=== PATIENT | female | born 1985 | race American Indian/Alaskan Native ===

== ENCOUNTER 2017-10-24 09:01 | Inpatient (IN) | payer MEDICARE, OTHER ==
[2017-10-24] MEDS ORDERED: LASIX IV ONE (12:06)
--- NOTE | 2017-10-24 12:10 | Emergency Department Report ---
Blank Doc - Documentation Documentation: Patient is 32 years old female with extensive past medical history that includes congestive heart failure, CVA, hypertension recent cardiac ablation [address] Ocasio at [facility]. Patient presented to the ER with 3 day history of cough, shortness of breath and chest tightness. Patient denied any fever, nausea or vomiting. On exam patient in no acute distress, diminished breath sounds on both sides, heart exam is normal. Given the patient current medical problems and a recent ablation patient will need further workup. Labs, chest x-ray ordered patient also receive 40 mg iv Lasix.
[2017-10-24 12:40] LABS: Basophils # (Auto) 0.1 K/mm3 (0.0-0.1); Basophils % (Auto) 0.6 % (0.0-1.8); Eosinophils # (Auto) 0.1 K/mm3 (0.0-0.4); Eosinophils % (Auto) 0.6 % (0.0-4.3); Hematocrit 37.5 % (30.3-42.9); Hemoglobin 12.6 gm/dl (10.1-14.3); Lymphocytes # (Auto) 1.5 K/mm3 (1.2-5.4); Lymphocytes % (Auto) 17.6 % (13.4-35.0); Mean Corpuscular HGB Conc 34 % (30-34); Mean Corpuscular Hemoglobin 32 pg (28-32); Mean Corpuscular Volume 95 fl (79-97); Monocytes # (Auto) 0.8 K/mm3 (0.0-0.8); Platelet Count 309 K/mm3 (140-440); Red Blood Count 3.97 M/mm3 (3.65-5.03); Red Cell Distribution Width 14.1 % (13.2-15.2)
[2017-10-24 12:49] LABS: INR 1.42 (0.87-1.13)
[2017-10-24 12:50] LABS: Partial Thromboplastin Time 36.5 Sec. (24.2-36.6)
[2017-10-24 12:57] LABS: Bacteria,Urine 3+ /HPF (Negative); Bilirubin,Urine NEG (Negative); Blood,Urine SM (Negative); Color,Urine Yellow (Yellow); Hyaline Casts,Urine 1 /LPF; Mucus,Urine FEW /HPF; Nitrite,Urine NEG (Negative); Protein,Urine <15 mg/dL mg/dL (Negative); Urobilinogen,Urine < 2.0 mg/dL (<2.0)
[2017-10-24 13:01] LABS: Alanine Aminotransferase 53 units/L (7-56); Albumin 3.9 g/dL (3.9-5); BUN/Creatinine Ratio 9; Blood Urea Nitrogen 12 mg/dL (7-17); Calcium 9.1 mg/dL (8.4-10.2); Hemolysis Index 45
[2017-10-24 13:04] LABS: WBC,Urine < 1.0 /HPF (0.0-6.0)
[2017-10-24] MEDS: LASIX PO ONE ×2 (13:04→13:05)
--- NOTE | 2017-10-24 13:44 | XRay Report ---
Single view chest: History: Dyspnea. Findings: Cardiomegaly is midline. Stable pacemaker. Mild pulmonary venous congestion. Normal CP angles. Impression: Cardiomegaly with mild pulmonary venous congestion.
[2017-10-24] MEDS ORDERED: TESSALON PERLES PO ONE (14:26)
--- NOTE | 2017-10-24 14:30 | Emergency Department Report ---
ED Shortness of Breath HPI - General Chief Complaint: Upper Respiratory Infection Stated Complaint: CP/COUGH Time Seen by Provider: 10/24/17 12:01 Source: patient Mode of arrival: Ambulatory Limitations: No Limitations - History of Present Illness Initial Comments: This is a 32-year-old female nontoxic, well nourished in appearance, no acute signs of distress presents to the ED with c/o of chest pain, shortness of breathe, chest tightness and cough x3 days. Patient stated has had a cardiac ablation last week for CHF. Patient denies any recent travels or long care rides. Patient denies any calf pain or tenderness. Patient denies any hemoptysis, numbness, tingling, fever, chills, bowel pain, back pain, headache or stiff neck. Patient states past medical history includes CHF, CVA, and hypertension. Allergies includes vancomycin. MD Complaint: shortness of breath, cough, chest pain -: days(s) (3) Radiation: left arm Severity: mild Pain Scale: 8 Quality: aching Consistency: constant Improves With: nothing Worsens With: nothing Known History Of: congestive heart failure Associated Symptoms: chest pain, cough, sputum production Treatments Prior to Arrival: none - Related Data Allergies Allergy/AdvReac Type Severity Reaction Status Date / Time vancomycin Allergy Rash Verified 10/24/17 09:13 ED Review of Systems ROS: Stated complaint: CP/COUGH Other details as noted in HPI Constitutional: denies: chills, fever Eyes: denies: eye pain, eye discharge, vision change ENT: denies: ear pain, throat pain Respiratory: cough, shortness of breath, SOB with exertion, wheezing Cardiovascular: chest pain. denies: palpitations Endocrine: no symptoms reported Gastrointestinal: denies: abdominal pain, nausea, diarrhea Genitourinary: denies: urgency, dysuria, discharge Musculoskeletal: denies: back pain, joint swelling, arthralgia Skin: denies: rash, lesions Neurological: denies: headache, weakness, paresthesias Psychiatric: denies: anxiety, depression Hematological/Lymphatic: denies: easy bleeding, easy bruising ED Past Medical Hx - Past Medical History Previous Medical History?: Yes Hx Hypertension: Yes Hx CVA: Yes Hx Congestive Heart Failure: Yes Hx Psychiatric Treatment: Yes (Anxiety, PTSD) - Surgical History Past Surgical History?: Yes Hx Internal Defibrillator: Yes Additional Surgical History: ICD. Cardiac ablation x 2 - Social History Smoking Status: Never Smoker Substance Use Type: None ED Physical Exam - General Limitations: No Limitations General appearance: alert, in no apparent distress - Head Head exam: Present: atraumatic, normocephalic - Eye Eye exam: Present: normal appearance, PERRL, EOMI Pupils: Present: normal accommodation - ENT ENT exam: Present: normal exam, normal orophraynx, mucous membranes moist, TM's normal bilaterally, normal external ear exam - Neck Neck exam: Present: normal inspection, full ROM. Absent: tenderness, meningismus, lymphadenopathy, thyromegaly - Respiratory Respiratory exam: Present: normal lung sounds bilaterally, wheezes (bilateral in all lobes), decreased breath sounds (bilateral lower lobes). Absent: respiratory distress - Cardiovascular Cardiovascular Exam: Present: regular rate, normal rhythm, normal heart sounds. Absent: irregular rhythm, systolic murmur, diastolic murmur, rubs, gallop - GI/Abdominal GI/Abdominal exam: Present: soft, normal bowel sounds. Absent: distended, tenderness, guarding, rebound, rigid, diminished bowel sounds - Rectal Rectal exam: Present: deferred - Extremities Exam Extremities exam: Present: normal inspection, full ROM, normal capillary refill. Absent: tenderness, pedal edema, joint swelling, calf tenderness - Back Exam Back exam: Present: normal inspection, full ROM. Absent: tenderness, CVA tenderness (R), CVA tenderness (L), muscle spasm, paraspinal tenderness, vertebral tenderness, rash noted - Neurological Exam Neurological exam: Present: alert, oriented X3, CN II-XII intact, normal gait, reflexes normal - Psychiatric Psychiatric exam: Present: normal affect, normal mood - Skin Skin exam: Present: warm, dry, intact, normal color. Absent: rash ED Course Vital Signs 10/24/17 10/24/17 09:08 13:23 Temperature 98.2 F 98.6 F Pulse Rate 88 89 Respiratory 18 16 Rate Blood Pressure 109/70 Blood Pressure 91/52 [Left] O2 Sat by Pulse 98 100 Oximetry - Reevaluation(s) Reevaluation #1: 10/24/17 14:32 Patient is speaking in full sentences with slight shortness of breathe with no distress noted. - Consultations Consultation #1: 10/24/17 14:32 Patient has been consulted with Dr. Cain about patient history, physical exam , and labs and examined and screened patient and agrees to ED plan of care and discharge plan of care. Consultation #2: 10/24/17 14:32 Dr. Ward was consulted about patient history, physical exam, labs/imaging and accepts patient to services. Requested to bridge orders to med/surg with tele remote. ED Medical Decision Making - Lab Data Result diagrams: 10/24/17 12:18 10/24/17 12:18 - Medical Decision Making This is a 32-year-old female that presents with CHF exacerbation. Patient is stable and was examined by me and Dr. Cain. Labs obtained and chest xray obtained and dictated by radiologist. Patient was notified of xray results with no questions. EKG obtained and nonstemi, signed by Dr. Cain. Patient was put on cardiac montior and 2L nasal O2. Patient also received 125mg of IV solu- medrol and DuoNeb. Patient was consulted with Dr. Ward and accepted patient to his services for admission. At time of admission, the patient does not seem toxic or ill in appearance. No acute signs of distress noted. Patient agrees to admission treatment plan of care. No further questions noted by the patient. Critical care attestation.: If time is entered above; I have spent that time in minutes in the direct care of this critically ill patient, excluding procedure time. ED Disposition Clinical Impression: CHF exacerbation Qualifiers: Congestive heart failure type: unspecified Qualified Code(s): I50.9 - Heart failure, unspecified Disposition: 09 OP ADMIT IP TO THIS HOSP Is pt being admited?: Yes Does the pt Need Aspirin: No Condition: Stable Referrals: PRIMARY CARE,MD [Primary Care Provider] - 3-5 Days
[2017-10-24] MEDS: DUONEB *Not for PRN Use IH SCH ×3 (14:48→20:27)
[2017-10-24] MEDS ORDERED: MORPHINE IV ONE (17:13)
--- NOTE | 2017-10-24 17:51 | History and Physical Report ---
History of Present Illness Date of examination: 10/24/17 Date of admission: 10/24/17 14:38 Chief complaint: Chief complaint: Increasing shortness of breath for 2 days and chest pain and cough History of present illness: History of Present Illness: 32-year-old -[place] female with history of CHF hypertension anxiety and posttraumatic stress disorder comes in for increasing shortness of breath of 3 days' duration. Also chest tightness and cough for 3 days. Patient had a cardiac ablation for arrhythmias recently. Increasing shortness of breath and orthopnea present. Patient does class IV symptoms of NYHA. No fever no chills. Cough or 2 of mucoid sputum. Some chest pain present. Retrosternal. No diaphoresis no palpitations. Pain is about 6 scale of 1-10. Dull in character. No radiation of chest pain Past Medical History Previous Medical History?: Yes Hx Hypertension: Yes Hx CVA: Yes Hx Congestive Heart Failure: Yes Hx Psychiatric Treatment: Yes (Anxiety, PTSD) - Surgical History Past Surgical History?: Yes Hx Internal Defibrillator: Yes Additional Surgical History: ICD. Cardiac ablation x 2 - Social History Smoking Status: Never Smoker Substance Use Type: None Family history Hypertension Review of Systems ROS: Stated complaint: CP/COUGH Other details as noted in HPI Constitutional: denies: chills, fever Eyes: denies: eye pain, eye discharge, vision change ENT: denies: ear pain, throat pain Respiratory: cough, shortness of breath, SOB with exertion, wheezing Cardiovascular: chest pain. denies: palpitations Endocrine: no symptoms reported Gastrointestinal: denies: abdominal pain, nausea, diarrhea Genitourinary: denies: urgency, dysuria, discharge Musculoskeletal: denies: back pain, joint swelling, arthralgia Skin: denies: rash, lesions Neurological: denies: headache, weakness, paresthesias Psychiatric: denies: anxiety, depression Hematological/Lymphatic: denies: easy bleeding, easy bruising Medications and Allergies Allergies Allergy/AdvReac Type Severity Reaction Status Date / Time vancomycin Allergy Rash Verified 10/24/17 09:13 Home Medications Medication Instructions Recorded Confirmed Last Taken Type ALPRAZolam [Xanax] 2 mg PO BID PRN 10/24/17 10/24/17 Unknown History Amiodarone HCl [Pacerone 400 MG 400 mg PO QDAY 10/24/17 10/24/17 Unknown History TAB] Bisoprolol [Zebeta] 5 mg PO BID 10/24/17 10/24/17 Unknown History Famotidine [Pepcid] 40 mg PO QHS 10/24/17 10/24/17 Unknown History Ferrous Sulfate [Feosol] 325 mg PO QDAY 10/24/17 10/24/17 Unknown History LORazepam [Ativan] 1 mg PO Q12H PRN 10/24/17 10/24/17 Unknown History Pantoprazole [Protonix] 40 mg PO QDAY 10/24/17 10/24/17 Unknown History Potassium Chloride [K-Dur] 20 meq PO BID 10/24/17 10/24/17 Unknown History Ramelteon [Rozerem] 8 mg PO HS 10/24/17 10/24/17 Unknown History Rivaroxaban [Xarelto] 15 mg PO QPM 10/24/17 10/24/17 Unknown History Simvastatin [Zocor] 10 mg PO HS 10/24/17 10/24/17 Unknown History Spironolactone [Aldactone] 25 mg PO BID 10/24/17 10/24/17 Unknown History Torsemide [Demadex] 100 mg PO QDAY 10/24/17 10/24/17 Unknown History traMADol [Ultram] 50 mg PO Q8H PRN 10/24/17 10/24/17 Unknown History Active Meds: Active Medications Albuterol/Ipratropium (Duoneb *Not For Prn Use*) 1 ampul QIDRT [facility] Last Admin: 10/24/17 14:48 Dose: 1 ampul Exam - Physical Exam Narrative exam: Lying in bed in some distress - Constitutional Vitals: Temp Pulse Resp BP Pulse Ox 98.6 F 92 H 20 114/48 100 10/24/17 14:37 10/24/17 14:37 10/24/17 14:42 10/24/17 14:37 10/24/17 14:37 General appearance: Present: no acute distress, mild distress, well-nourished - EENT Eyes: Present: PERRL ENT: hearing intact, clear oral mucosa - Neck Neck: Present: supple, normal ROM - Respiratory Respiratory effort: normal Respiratory: bilateral: CTA, rales, rhonchi, wheezing - Cardiovascular Heart rate: 80 Rhythm: regular Heart Sounds: Present: S1 & S2. Absent: rub, click - Extremities Extremities: pulses symmetrical, No edema Peripheral Pulses: within normal limits - Abdominal General gastrointestinal: Present: soft, non-tender, non-distended, normal bowel sounds Female genitourinary: Present: normal - Rectal Rectal Exam: deferred - Integumentary Integumentary: Present: clear, warm, dry - Musculoskeletal Musculoskeletal: gait normal, strength equal bilaterally - Psychiatric Psychiatric: appropriate mood/affect, intact judgment & insight - Neurologic Neurologic: CNII-XII intact, moves all extremities - Allied Health Allied health notes reviewed: nursing, case management Results - Labs CBC & Chem 7: 10/24/17 12:18 10/24/17 12:18 Labs: Laboratory Last Values WBC 8.8 K/mm3 (4.5-11.0) 10/24/17 12:18 RBC 3.97 M/mm3 (3.65-5.03) 10/24/17 12:18 Hgb 12.6 gm/dl (10.1-14.3) 10/24/17 12:18 Hct 37.5 % (30.3-42.9) 10/24/17 12:18 MCV 95 fl (79-97) 10/24/17 12:18 MCH 32 pg (28-32) 10/24/17 12:18 MCHC 34 % (30-34) 10/24/17 12:18 RDW 14.1 % (13.2-15.2) 10/24/17 12:18 Plt Count 309 K/mm3 (140-440) 10/24/17 12:18 Lymph % (Auto) 17.6 % (13.4-35.0) 10/24/17 12:18 [place] % (Auto) 9.0 % (0.0-7.3) H 10/24/17 12:18 Eos % (Auto) 0.6 % (0.0-4.3) 10/24/17 12:18 Baso % (Auto) 0.6 % (0.0-1.8) 10/24/17 12:18 Lymph # 1.5 K/mm3 (1.2-5.4) 10/24/17 12:18 [place] # 0.8 K/mm3 (0.0-0.8) 10/24/17 12:18 Eos # 0.1 K/mm3 (0.0-0.4) 10/24/17 12:18 Baso # 0.1 K/mm3 (0.0-0.1) 10/24/17 12:18 Seg Neutrophils % 72.2 % (40.0-70.0) H 10/24/17 12:18 Seg Neutrophils # 6.3 K/mm3 (1.8-7.7) 10/24/17:18 PT 18.2 Sec. (12.2-14.9) H 10/24/17 12:18 INR 1.42 (0.87-1.13) H 10/24/17 12:18 APTT 36.5 Sec. (24.2-36.6) 10/24/17 12:18 Sodium 136 mmol/L (137-145) L 10/24/17 12:18 Potassium 4.5 mmol/L (3.6-5.0) 10/24/17 12:18 Chloride 96.0 mmol/L (98-107) L 10/24/17:18 Carbon Dioxide 23 mmol/L (22-30) 10/24/17 12:18 Anion Gap 22 mmol/L 10/24/17 12:18 BUN 12 mg/dL (7-17) 10/24/17 12:18 Creatinine 1.3 mg/dL (0.7-1.2) H 10/24/17 12:18 Estimated GFR 57 ml/min 10/24/17:18 BUN/Creatinine Ratio 9 % 10/24/17 12:18 Glucose 85 mg/dL (65-100) 10/24/17 12:18 Calcium 9.1 mg/dL (8.4-10.2) 10/24/17 12:18 Total Bilirubin 0.50 mg/dL (0.1-1.2) 10/24/17 12:18 AST 42 units/L (5-40) H 10/24/17 12:18 ALT 53 units/L (7-56) 10/24/17 12:18 Alkaline Phosphatase 132 units/L (35-129) H 10/24/17 12:18 Troponin T < 0.010 ng/mL (0.00-0.029) 10/24/17 12:18 NT-Pro-B Natriuret Pep 2175 pg/mL (0-450) H 10/24/17 12:18 Total Protein 8.0 g/dL (6.3-8.2) 10/24/17 12:18 Albumin 3.9 g/dL (3.9-5) 10/24/17 12:18 Albumin/Globulin Ratio 1.0 % 10/24/17 12:18 HCG, Qual Negative (Negative) 10/24/17 12:18 Urine Color Yellow (Yellow) 10/24/17 12:42 Urine Turbidity Clear (Clear) 10/24/17 12:42 Urine pH 7.0 (5.0-7.0) 02 12:42 Ur Specific [place] 1.008 (1.003-1.030) 10/24/17 12:42 Urine Protein <15 mg/dl mg/dL (Negative) 10/24/17 12:42 Urine Glucose (UA) Neg mg/dL (Negative) 10/24/17 12:42 Urine Ketones Neg mg/dL (Negative) 10/24/17 12:42 Urine Blood Sm (Negative) 10/24/17 12:42 Urine Nitrite Neg (Negative) 10/24/17 12:42 Urine Bilirubin Neg (Negative) 10/24/17 12:42 Urine Urobilinogen < 2.0 mg/dL (<2.0) 10/24/17 12:42 Ur Leukocyte Esterase Neg (Negative) 10/24/17 12:42 Urine WBC (Auto) < 1.0 /HPF (0.0-6.0) 10/24/17 12:42 Urine RBC (Auto) 3.0 /HPF (0.0-6.0) 10/24/17 12:42 U Epithel Cells (Auto) 7.0 /HPF (0-13.0) 10/24/17 12:42 Urine Bacteria (Auto) 3+ /HPF (Negative) 10/24/17 12:42 Hyaline Casts 1 /LPF 10/24/17 12:42 Urine Mucus Few /HPF 10/24/17 12:42 Urine Yeast (Budding) 1+ /HPF 10/24/17 12:42 Short CBC 10/24/17 Range/Units 12:18 WBC 8.8 (4.5-11.0) K/mm3 Hgb 12.6 (10.1-14.3) gm/dl Hct 37.5 (30.3-42.9) % Plt Count 309 (140-440) K/mm3 BMP 10/24/17 12:18 Sodium 136 L Potassium 4.5 Chloride 96.0 L Carbon Dioxide 23 BUN 12 Creatinine 1.3 H Glucose 85 Calcium 9.1 Cardiac Enzymes 10/24/17 Range/Units 12:18 Troponin T < 0.010 (0.00-0.029) ng/mL Liver Function 10/24/17 Range/Units 12:18 Total Bilirubin 0.50 (0.1-1.2) mg/dL AST 42 H (5-40) units/L ALT 53 (7-56) units/L Alkaline Phosphatase 132 H (35-129) units/L Albumin 3.9 (3.9-5) g/dL Urine 10/24/17 Range/Units 12:42 Urine Color Yellow (Yellow) Urine pH 7.0 (5.0-7.0) Ur Specific [place] 1.008 (1.003-1.030) Urine Protein <15 mg/dl (Negative) mg/dL Urine Glucose (UA) Neg (Negative) mg/dL - Imaging and Cardiology EKG: report reviewed (80/m nonspecific ST-T wave changes) Chest x-ray: report reviewed (cardiomegaly with pulmonary venous congestion) Assessment and Plan Advance Directives: Yes (full code) VTE prophylaxis?: Chemical Plan of care discussed with patient/family: Yes - Patient Problems (1) CHF exacerbation Current Visit: Yes Status: Acute Qualifiers: Congestive heart failure type: diastolic Qualified Code(s): I50.33 - Acute on chronic diastolic (congestive) heart failure Plan to address problem: Symptoms consistent with CHF exacerbation. Daily weights. Strict intake and output. IV Lasix 40 mg every 12. [facility] consulted. Their on-call KCl 20 mEq by mouth every 12 hours. Echocardiogram for ejection fraction. (2) Asthma exacerbation Current Visit: Yes Status: Acute Qualifiers: Asthma severity: moderate Plan to address problem: Duonebs every 6 [id number] and every 3 when necessary. IV Levaquin initiated. Low-dose Solu-Medrol at 40 mg every 12 started. (3) Arrhythmia Current Visit: Yes Status: Chronic Qualifiers: Atrial fibrillation type: unspecified Plan to address problem: Continue Xarelto and amiodarone (4) Hypertension Current Visit: Yes Status: Chronic Qualifiers: Hypertension type: essential hypertension Qualified Code(s): I10 - Essential (primary) hypertension Plan to address problem: Continue bisoprolol and spiranolactone (5) Hyperlipidemia Current Visit: Yes Status: Chronic Qualifiers: Hyperlipidemia type: mixed hyperlipidemia Qualified Code(s): E78.2 - Mixed hyperlipidemia Plan to address problem: Continue statins (6) GERD (gastroesophageal reflux disease) Current Visit: Yes Status: Chronic Qualifiers: Esophagitis presence: without esophagitis Qualified Code(s): K21.9 - Gastro -esophageal reflux disease without esophagitis Plan to address problem: Continue Protonix (7) Anemia Current Visit: Yes Status: Chronic Qualifiers: Anemia type: iron deficiency Plan to address problem: Continue ferrous sulfate (8) YONATAN (generalized anxiety disorder) Current Visit: Yes Status: Chronic Plan to address problem: Continue Xanax 2 mg twice a day (9) DVT prophylaxis Current Visit: Yes Status: Acute Plan to address problem: Patient on Xarelto
[2017-10-24] MEDS ORDERED: XANAX PO PRN (17:52)
[2017-10-24] MEDS ORDERED: DEMADEX PO SCH (18:00)
[2017-10-24] MEDS ORDERED: AMIODARONE HCL 400 MG PO SCH (18:00)
[2017-10-24] MEDS ORDERED: TYLENOL PO PRN (18:10)
[2017-10-24] MEDS ORDERED: DULCOLAX PR PRN (18:10)
[2017-10-24] MEDS ORDERED: ZOFRAN IV PRN (18:10)
[2017-10-24] MEDS ORDERED: MILK OF MAGNESIA PO PRN (18:10)
[2017-10-24] MEDS ORDERED: DUONEB *Not for PRN Use IH (18:16)
[2017-10-24] MEDS ORDERED: PROVENTIL IH PRN (18:33)
[2017-10-24] MEDS: ROBITUSSIN AC PO PRN (18:38)
[2017-10-24] MEDS: PROTONIX PO SCH (18:51)
[2017-10-24] MEDS: XARELTO PO SCH (18:51)
[2017-10-24] MEDS: FEOSOL PO SCH (18:51)
[2017-10-24] MEDS ORDERED: LEVAQUIN 750MG/150ML 750 MG/150 ML BAG IV SCH (20:00)
[2017-10-24] MEDS ORDERED: DUONEB *Not for PRN Use IH SCH (20:00)
[2017-10-24] MEDS: PEPCID PO SCH (21:06)
[2017-10-24] MEDS: ALDACTONE PO SCH (21:08)
[2017-10-24] MEDS: PRAVACHOL PO SCH (21:09)
[2017-10-24] MEDS: ULTRAM PO PRN (21:24)
[2017-10-24] MEDS: CORDARONE PO SCH (21:25)
[2017-10-24] MEDS ORDERED: NON-FORMULARY (Simvastatin [Zocor] 10 MG) PO SCH (22:00)
[2017-10-24] MEDS ORDERED: NON-FORMULARY (Famotidine [Pepcid] 40 MG) PO SCH (22:00)
[2017-10-24] MEDS ORDERED: RAMELTEON 8 MG PO SCH (22:00)
[2017-10-24] MEDS ORDERED: K-DUR PO SCH (22:00)
[2017-10-24] MEDS ORDERED: BISOPROLOL 5 MG PO SCH (22:00)
[2017-10-24] MEDS: DILAUDID IV PRN (23:13)
[2017-10-24] MEDS: ATIVAN PO PRN (23:14)
[2017-10-25] MEDS: ROBITUSSIN AC PO PRN ×4 (00:25→21:17)
[2017-10-25 05:07] LABS: Hemoglobin 12.4 gm/dl (10.1-14.3); Mean Corpuscular HGB Conc 34 % (30-34); Mean Corpuscular Hemoglobin 32 pg (28-32); Mean Corpuscular Volume 95 fl (79-97); Platelet Count 315 K/mm3 (140-440); Red Cell Distribution Width 14.1 % (13.2-15.2)
[2017-10-25 05:21] LABS: Albumin 4.3 g/dL (3.9-5)
[2017-10-25 06:05] LABS: Band Neutrophils # (Manual) 1.3 K/mm3; Basophils % (Manual) 0 % (0.0-1.8); Eosinophils % (Manual) 0 % (0.0-4.3); Monocytes % (Manual) 0 % (0.0-7.3); Total Cells Counted 100
[2017-10-25 06:06] LABS: Platelet Estimate Consistent w Auto
[2017-10-25] MEDS: DUONEB *Not for PRN Use IH SCH ×4 (08:17→21:16)
--- NOTE | 2017-10-25 11:44 | Consultation ---
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 She is followed by Dr. Culp at [place]. She presented with c/o SOB and productive cough with clear sputum for the past several days. She also c/o chest soreness secondary to persistent coughing. She denies any palpitations, n/v, diaphoresis, dizziness or syncope. She reports compliance with her medications and dietary restrictions. Echo done 08/2017 showed EF 10-15%, LV mod dilated, mildly dilated LA, mild to mod TR, mild MVR, mildly to moderately reduced RV systolic function, small pleural effusion in left lateral region, no pericardial effusion. Past History Past Medical History: atrial fib, arrhythmia, heart failure, hypertension, stroke Past Surgical History: Other (AICD) Social history: denies: smoking, alcohol abuse, prescription drug abuse Medications and Allergies Allergies Allergy/AdvReac Type Severity Reaction Status Date / Time vancomycin Allergy Rash Verified 10/24/17 09:13 Home Medications Medication Instructions Recorded Confirmed Last Taken Type ALPRAZolam [Xanax] 2 mg PO BID PRN 10/24/17 10/24/17 Unknown History Amiodarone HCl [Pacerone 400 MG 400 mg PO QDAY 10/24/17 10/24/17 Unknown History TAB] Bisoprolol [Zebeta] 5 mg PO BID 10/24/17 10/24/17 Unknown History Famotidine [Pepcid] 40 mg PO QHS 10/24/17 10/24/17 Unknown History Ferrous Sulfate [Feosol] 325 mg PO QDAY 10/24/17 10/24/17 Unknown History LORazepam [Ativan] 1 mg PO Q12H PRN 10/24/17 10/24/17 Unknown History Pantoprazole [Protonix] 40 mg PO QDAY 10/24/17 10/24/17 Unknown History Potassium Chloride [K-Dur] 20 meq PO BID 10/24/17 10/24/17 Unknown History Ramelteon [Rozerem] 8 mg PO HS 10/24/17 10/24/17 Unknown History Rivaroxaban [Xarelto] 15 mg PO QPM 10/24/17 10/24/17 Unknown History Simvastatin [Zocor] 10 mg PO HS 10/24/17 10/24/17 Unknown History Spironolactone [Aldactone] 25 mg PO BID 10/24/17 10/24/17 Unknown History Torsemide [Demadex] 100 mg PO QDAY 10/24/17 10/24/17 Unknown History traMADol [Ultram] 50 mg PO Q8H PRN 10/24/17 10/24/17 Unknown History Active Meds: Active Medications Acetaminophen (Tylenol) 650 mg PO Q4H PRN PRN Reason: Pain MILD(1-3)/Fever >100.5/WEEKS Albuterol (Proventil) 2.5 mg IH Q4HRT PRN PRN Reason: Shortness Of Breath Albuterol/Ipratropium (Duoneb *Not For Prn Use*) 1 ampul IH QIDRT [facility] Last Admin: 10/25/17 08:17 Dose: 1 ampul Alprazolam (Xanax) 2 mg PO BID PRN PRN Reason: Anxiety Last Admin: 10/24/17 18:49 Dose: 2 mg Amiodarone HCl (Cordarone) 400 mg PO DAILY [facility] Last Admin: 10/24/17 21:25 Dose: 400 mg Bisacodyl (Dulcolax) 10 mg MI QDAY PRN PRN Reason: Constipation unrelieved by MOM Famotidine (Pepcid) 40 mg PO QHS [facility] Last Admin: 10/24/17 21:06 Dose: 40 mg Ferrous Sulfate (Feosol) 325 mg PO QDAY [facility] Last Admin: 10/24/17 18:51 Dose: Not Given Furosemide (Lasix) 40 mg IV 0600,1800 [facility] Hydromorphone HCl (Dilaudid) 0.5 mg IV Q3H PRN PRN Reason: Pain , Severe (7-10) Last Admin: 10/24/17 23:13 Dose: 0.5 mg Levofloxacin/Dextrose (Levaquin 750mg/150ml) 750 mg in 150 mls @ 100 mls/hr IV Q48HR [facility] PRN Reason: Protocol Lorazepam (Ativan) 1 mg PO Q12H PRN PRN Reason: Anxiety Last Admin: 10/24/17 23:14 Dose: 1 mg Magnesium Hydroxide (Milk Of Magnesia) 30 ml PO Q4H PRN PRN Reason: Constipation Methylprednisolone Sodium Succinate (Solu-Medrol) 40 mg IV Q12H [facility] Last Admin: 10/24/17 21:22 Dose: 40 mg Miscellaneous Medication (Bisoprolol [Zebeta]) 5 mg PO BID [facility] Miscellaneous Medication (Ramelteon [Rozerem]) 8 mg PO HS [facility] Ondansetron HCl (Zofran) 4 mg IV Q8H PRN PRN Reason: N/V unrelieved by Reglan Pantoprazole Sodium (Protonix) 40 mg PO QDAY [facility] Last Admin: 10/24/17 18:51 Dose: Not Given Pneumococcal Polyvalent Vaccine (Pneumovax 23) 0.5 ml IM .ONCE ONE Stop: 10/25/17 12:01 Potassium Chloride (K-Dur) 20 meq PO BID [facility] Last Admin: 10/24/17 21:09 Dose: 20 meq Pravastatin Sodium (Pravachol) 20 mg PO QHS [facility] Last Admin: 10/24/17 21:09 Dose: 20 mg Pseudoephedrine/Acetam/Chlorphenir (Robitussin Ac) 10 ml PO Q6H PRN PRN Reason: Cough Last Admin: 10/25/17 07:12 Dose: 10 ml Rivaroxaban (Xarelto) 15 mg PO QPM [facility] PRN Reason: Protocol Last Admin: 10/24/17 18:51 Dose: Not Given Spironolactone (Aldactone) 25 mg PO BID [facility] Last Admin: 10/24/17 21:08 Dose: 25 mg Tramadol HCl (Ultram) 50 mg PO Q8H PRN PRN Reason: Pain Last Admin: 10/24/17 21:24 Dose: 50 mg Review of Systems Constitutional: no weight loss, no weight gain, no fever, no chills, no sweats Ears, nose, mouth and throat: no ear pain, no nose pain, no sinus pressure, no sinus pain Cardiovascular: chest pain (pleuritic), shortness of breath, dyspnea on exertion Respiratory: cough with sputum, shortness of breath, no congestion, no wheezing Gastrointestinal: no abdominal pain, no nausea, no vomiting, no diarrhea, no constipation, no change in bowel habits Genitourinary Female: no pelvic pain, no flank pain, no dysuria, no urinary frequency, no urgency Integumentary: no rash, no pruritis, no redness, no sores, no wounds Neurological: no head injury, no paralysis, no weakness, no parathesias, no numbness, no tingling, no seizures, no syncope Psychiatric: anxiety Endocrine: no cold intolerance, no heat intolerance Hematologic/Lymphatic: no easy bruising, no easy bleeding, no lymphadenopathy Allergic/Immunologic: no urticaria, no wheezing, no persistent infections Physical Examination Vital Signs Temp Pulse Resp BP Pulse Ox 98.2 F 88 18 109/70 98 10/24/17 09:08 10/24/17 09:08 10/24/17 09:08 10/24/17 09:08 10/24/17 09:08 General appearance: no acute distress HEENT: Positive: PERRL, Normocephaly, Mucus Membranes Moist Neck: Positive: neck supple, trachea midline Cardiac: Positive: Reg Rate and Rhythm, S1/S2 Lungs: Positive: Decreased Breath Sounds Neuro: Positive: Grossly Intact, Cranial Nerve 2-12 Intact Abdomen: Positive: Soft. Negative: Tender Skin: Positive: Clear. Negative: Rash, Wound Musculoskeletal: No Fluid Collection, No Pain, Normal Range of Motion Extremities: Absent: edema Results 10/25/17 04:17 10/25/17 04:17 Cardiac Enzymes 10/24/17 10/25/17 Range/Units 12:18 04:17 AST 42 H 39 (5-40) units/L Coagulation 10/24/17 Range/Units 12:18 PT 18.2 H (12.2-14.9) Sec. INR 1.42 H (0.87-1.13) APTT 36.5 (24.2-36.6) Sec. CBC 10/24/17 10/25/17 Range/Units 12:18 04:17 WBC 8.8 11.8 H (4.5-11.0) K/mm3 RBC 3.97 3.90 (3.65-5.03) M/mm3 Hgb 12.6 12.4 (10.1-14.3) gm/dl Hct 37.5 37.0 (30.3-42.9) % Plt Count 309 315 (140-440) K/mm3 Lymph # 1.5 (1.2-5.4) K/mm3 [place] # 0.8 (0.0-0.8) K/mm3 Eos # 0.1 (0.0-0.4) K/mm3 Baso # 0.1 (0.0-0.1) K/mm3 Comprehensive Metabolic Panel 10/24/17 10/25/17 Range/Units 12:18 04:17 Sodium 136 L 135 L (137-145) mmol/L Potassium 4.5 5.4 H (3.6-5.0) mmol/L Chloride 96.0 L 95.6 L (98-107) mmol/L Carbon Dioxide 23 18 L (22-30) mmol/L BUN 12 23 H (7-17) mg/dL Creatinine 1.3 H 2.0 H D (0.7-1.2) mg/dL Glucose 85 163 H (65-100) mg/dL Calcium 9.1 9.0 (8.4-10.2) mg/dL AST 42 H 39 (5-40) units/L ALT 53 54 (7-56) units/L Alkaline Phosphatase 132 H 151 H (35-129) units/L Total Protein 8.0 7.6 (6.3-8.2) g/dL Albumin 3.9 4.3 (3.9-5) g/dL - Imaging and Cardiology Echo: report reviewed (08/2017 showed EF 10-15%, LV mod dilated, mildly dilated LA, mild to mod TR, mild MVR, mildly to moderately reduced RV systolic function , small pleural effusion in left lateral region, no pericardial effusion. ) EKG: report reviewed, image reviewed EKG interpretations - Telemetry EKG Rhythm: Paced Pacemaker: ventricular pacing w/capt Assessment and Plan Assessment: Acute on chronic systolic biventricular heart failure Dilated NICMP, s/p H[employer]IAN-D Chest pain - pleuritic; ECG with no acute ischemic changes; troponin negative for AMI x 3 sets Atrial fibrillation/atrial flutter on Xarelto, s/p AFlutter ablation 04/2016, s/ p AFib ablation 10/14/2017 HTN H/o embolic CVA in 2011 H/o amio induced thyroid dysfunction Obesity Anxiety Plan: Agree with current cardiac regimen. Assessment and plan of care reviewed with pt at bedside. The patient has been seen in conjunction with Dr. Pineda who agrees with the assessment and plan of care.
[2017-10-25] MEDS ORDERED: PNEUMOVAX 23 IM ONE (12:00)
[2017-10-25] MEDS: FEOSOL PO SCH (13:19)
[2017-10-25] MEDS: ALDACTONE PO SCH ×2 (13:20→21:16)
[2017-10-25] MEDS: PROTONIX PO SCH (13:20)
[2017-10-25] MEDS: CORDARONE PO SCH (13:20)
[2017-10-25] MEDS: DILAUDID IV PRN ×3 (13:21→21:13)
--- NOTE | 2017-10-25 14:50 | Progress Note ---
Assessment and Plan - Patient Problems (1) CHF exacerbation Current Visit: Yes Status: Acute Qualifiers: Congestive heart failure type: diastolic Qualified Code(s): I50.33 - Acute on chronic diastolic (congestive) heart failure Plan to address problem: Symptoms consistent with CHF exacerbation. Daily weights. Strict intake and output. IV Lasix 40 mg every 12. [facility] consulted. Their on-call KCl 20 mEq by mouth every 12 hours. Echocardiogram for ejection fraction. (2) Asthma exacerbation Current Visit: Yes Status: Acute Qualifiers: Asthma severity: moderate Plan to address problem: Duonebs every 6 [id number] and every 3 when necessary. IV Levaquin initiated. Low-dose Solu-Medrol at 40 mg every 12 started. (3) Arrhythmia Current Visit: Yes Status: Chronic Qualifiers: Atrial fibrillation type: unspecified Plan to address problem: Continue Xarelto and amiodarone (4) Hypertension Current Visit: Yes Status: Chronic Qualifiers: Hypertension type: essential hypertension Qualified Code(s): I10 - Essential (primary) hypertension Plan to address problem: Continue bisoprolol and spiranolactone (5) Hyperlipidemia Current Visit: Yes Status: Chronic Qualifiers: Hyperlipidemia type: mixed hyperlipidemia Qualified Code(s): E78.2 - Mixed hyperlipidemia Plan to address problem: Continue statins (6) GERD (gastroesophageal reflux disease) Current Visit: Yes Status: Chronic Qualifiers: Esophagitis presence: without esophagitis Qualified Code(s): K21.9 - Gastro -esophageal reflux disease without esophagitis Plan to address problem: Continue Protonix (7) Anemia Current Visit: Yes Status: Chronic Qualifiers: Anemia type: iron deficiency Plan to address problem: Continue ferrous sulfate (8) YONATAN (generalized anxiety disorder) Current Visit: Yes Status: Chronic Plan to address problem: Continue Xanax 2 mg twice a day (9) DVT prophylaxis Current Visit: Yes Status: Acute Plan to address problem: Patient on Xarelto Subjective Date of service: 10/25/17 Principal diagnosis: CHF exacerbation Interval history: SOB present.Seeking cough syrup Objective - Exam Narrative Exam: Lying in bed in some distress - Constitutional Vitals: Vital Signs - 12hr 10/25/17 10/25/17 10/25/17 04:54 08:17 08:37 Temperature 98.2 F Pulse Rate 136 H Pulse Rate [ 72 66 Bilateral Throughout] Respiratory 16 Rate Respiratory 24 20 Rate [Bilateral Throughout] Blood Pressure 128/90 O2 Sat by Pulse 97 Oximetry 10/25/17 10/25/17 12:41 12:55 Temperature Pulse Rate Pulse Rate [ 65 60 Bilateral Throughout] Respiratory Rate Respiratory 18 20 Rate [Bilateral Throughout] Blood Pressure O2 Sat by Pulse Oximetry General appearance: Present: no acute distress, well-nourished - EENT Eyes: PERRL, EOM intact ENT: hearing intact, clear oral mucosa Ears: bilateral: normal - Neck Neck: supple, normal ROM - Respiratory Respiratory effort: normal Respiratory: bilateral: rales, rhonchi - Breasts Breasts: normal - Cardiovascular Rhythm: regular Heart Sounds: Present: S1 & S2. Absent: gallop, rub Extremities: pulses intact, No edema, normal color, Full ROM - Gastrointestinal General gastrointestinal: Present: soft, non-tender, non-distended, normal bowel sounds - Genitourinary Female genitourinary: normal - Integumentary Integumentary: clear, warm, dry - Musculoskeletal Musculoskeletal: 1, strength equal bilaterally - Neurologic Neurologic: moves all extremities - Psychiatric Psychiatric: memory intact, appropriate mood/affect, intact judgment & insight - Labs CBC & Chem 7: 10/25/17 04:17 10/26/17 06:41 Labs: Abnormal lab results 10/25/17 10/25/17 Range/Units 04:17 04:17 WBC 11.8 H (4.5-11.0) K/mm3 Seg Neuts % (Manual) 78.0 H (40.0-70.0) % Lymphocytes % (Manual) 11.0 L (13.4-35.0) % Seg Neutrophils # Man 9.2 H (1.8-7.7) K/mm3 Sodium 135 L (137-145) mmol/L Potassium 5.4 H (3.6-5.0) mmol/L Chloride 95.6 L (98-107) mmol/L Carbon Dioxide 18 L (22-30) mmol/L BUN 23 H (7-17) mg/dL Creatinine 2.0 H D (0.7-1.2) mg/dL Glucose 163 H (65-100) mg/dL Alkaline Phosphatase 151 H (35-129) units/L
[2017-10-25] MEDS: XARELTO PO SCH (17:01)
[2017-10-25] MEDS: ATIVAN PO PRN (17:01)
[2017-10-25] MEDS: LASIX IV SCH (17:04)
[2017-10-25] MEDS: PEPCID PO SCH (21:14)
[2017-10-25] MEDS: PRAVACHOL PO SCH (21:17)
[2017-10-26] MEDS ORDERED: LOPRESSOR IV ONE (03:50)
[2017-10-26] MEDS: DILAUDID IV PRN (04:01)
[2017-10-26] MEDS: ATIVAN PO PRN (04:02)
[2017-10-26] MEDS ORDERED: NARCAN 0.4 MG/1 ML ONE (05:51)
[2017-10-26] MEDS: CORDARONE PO SCH ×2 (06:03→12:56)
[2017-10-26 06:06] LABS: Calcium 8.8 mg/dL (8.4-10.2)
[2017-10-26] MEDS ORDERED: KIONEX PO ONE (06:23)
--- NOTE | 2017-10-26 06:27 | Event Note ---
Date: 10/26/17 Code met called Patient very lethargic, she was given 1 mg of Ativan and Dilaudid ABG was done, which was reviewed, obtain EKG Patient given Narcan with good results Heart rate fluctuating between 96 and 116 She was given IV Lopressor earlier on for elevated heart rate Will give amiodarone 400 now She continues to complain of chest pain, check cardiac enzymes now
[2017-10-26] MEDS: LASIX IV SCH ×2 (06:53)
[2017-10-26 07:18] LABS: Creatine Kinase MB 2.2 ng/mL (0.0-4.0)
[2017-10-26] MEDS: DUONEB *Not for PRN Use IH SCH ×3 (07:47→15:47)
[2017-10-26] MEDS ORDERED: NARCAN 0.4 MG/1 ML IV ONE (08:18)
--- NOTE | 2017-10-26 09:09 | Progress Note ---
Assessment and Plan Assessment: Acute on chronic systolic biventricular heart failure - nearing/at euvolemia Dilated NICMP, s/p EDGER HAND-D Chest pain - pleuritic; ECG with no acute ischemic changes; troponin negative for AMI x 3 sets Atrial fibrillation/atrial flutter on Xarelto, s/p AFlutter ablation 04/2016, s/ p AFib ablation 10/14/2017 HTN H/o embolic CVA in 2011 H/o amio induced thyroid dysfunction Obesity Anxiety Plan: Echo reviewed - EF <10%, LV severely dilated, mild MR, mild to mod TR, LA anf RA dilated, RV dilated and mildly hypokinetic, small pericardial effusion that does not appear to be hemodynamically significant. Pt reports that she has been offered LVAD and/or evaluation by transplant team by primary sewage plant operator at [place]. Will defer to primary cardiology team. Currently stable cardiac status. Pt may discharge home from cardiology standpoint on home cardiac regimen. Recommend pt to follow up with Dr. Culp at [place] within 3-5 days of hospital discharge. Assessment and plan of care reviewed with pt at bedside. The patient has been seen in conjunction with Dr. Pineda who agrees with the assessment and plan of care. Subjective Date of service: 10/26/17 Principal diagnosis: CHF exacerbation Interval history: pt sleeping in bed, easily awakened. no current complaints. was given narcan overnight for lethargy after receiving IV dilaudid and ativan. Objective Last Vital Signs Temp 97.4 F L 10/26/17 07:55 Pulse 54 L 10/26/17 07:55 Resp 15 10/26/17 07:55 BP 115/84 10/26/17 07:55 Pulse Ox 99 10/26/17 07:55 - Physical Examination General: No Apparent Distress HEENT: Positive: PERRL, Normocephaly, Mucus Membranes Moist Neck: Positive: neck supple, trachea midline Cardiac: Positive: Reg Rate and Rhythm, S1/S2 Lungs: Positive: Decreased Breath Sounds Neuro: Positive: Grossly Intact, Cranial Nerve 2-12 Intact Abdomen: Positive: Soft. Negative: Tender Skin: Positive: Clear. Negative: Rash, Wound Musculoskeletal: No Fluid Collection, No Pain, Normal Range of Motion Extremities: Absent: edema - Labs and Meds Cardiac Enzymes 10/26/17 Range/Units 06:41 CK-MB (CK-2) 2.2 (0.0-4.0) ng/mL Comprehensive Metabolic Panel 10/26/17 10/26/17 Range/Units 05:24 06:41 Sodium 132 L (137-145) mmol/L Potassium 6.6 H* D 5.3 H (3.6-5.0) mmol/L Chloride 95.6 L (98-107) mmol/L Carbon Dioxide 15 L (22-30) mmol/L BUN 40 H (7-17) mg/dL Creatinine 2.0 H (0.7-1.2) mg/dL Glucose 172 H (65-100) mg/dL Calcium 8.8 (8.4-10.2) mg/dL - Imaging and Cardiology EKG: report reviewed, image reviewed Echo: report reviewed (08/2017 showed EF 10-15%, LV mod dilated, mildly dilated LA, mild to mod TR, mild MVR, mildly to moderately reduced RV systolic function , small pleural effusion in left lateral region, no pericardial effusion. ) - Telemetry EKG Rhythm: Paced Pacemaker: ventricular pacing w/capt
[2017-10-26] MEDS: PROTONIX PO SCH (09:49)
[2017-10-26] MEDS: ALDACTONE PO SCH (09:49)
[2017-10-26] MEDS: FEOSOL PO SCH (09:49)
[2017-10-26] MEDS ORDERED: LEVAQUIN 750MG/150ML 750 MG/150 ML BAG IV SCH (10:00)
--- NOTE | 2017-10-26 10:00 | Vascular Lab Report ---
Upper extremity arterial duplex Reason for exam: Left arm pain and swelling Comments on the left: All arteries are patent with normal flow signals. No evidence of arterial occlusive disease is noted. There is no evidence of a pseudoaneurysm involving any of the vessels. Comments on the right: Triphasic waveforms are seen at the radial and ulnar arteries at the wrist. Impression: Normal arterial flow in the left upper extremity with no evidence of pseudoaneurysm. Normal arterial flow in the right upper extremity.
[2017-10-26 15:20] VITALS: BP 103/71
[2017-10-26] MEDS: ROBITUSSIN AC PO PRN (15:27)
[2017-10-26] MEDS: ULTRAM PO PRN (15:37)
--- NOTE | 2017-10-26 16:22 | Discharge Summary ---
Providers - Providers Date of Admission: 10/24/17 14:38 Date of discharge: 10/26/17 Attending physician: ALTON CROSS 10/24/17 18:10 Consult to Physician [CONS] Routine Consulting Provider: RONAK LIU Reason For Exam: CHF exacerbation Place consult to:: DR. LIU Notified:: OFFICE Phone number called:: [phone] Was contact made?: Yes If yes, spoke with:: KIRA Time called:: 10:09 Primary care physician: LESLI JOHNSON Hospitalization Reason for admission: worsening shortness of breath Condition: Stable Pertinent studies: Echocardiogram; ejection fraction 10% Left upper extremity arterial Doppler; normal study Chest x-ray; cardiomegaly with mild pulmonary venous congestion Hospital course: Morbidly obese 32-year-old -[place] female patient with significant past medical history of systolic congestive heart failure hypertension history of CVA anxiety disorder cardiac arrhythmia status post cardiac ablation and ICD placement follows with electrical technology instructor in [facility] was admitted through emergency room with worsening shortness of breath and acute on chronic systolic congestive heart failure. Patient was symptomatically managed subsequently evaluated by electrical technology instructor LV ejection fraction 10%, medications were optimized. Symptoms significantly improved Today's comfortably in bed alert awake oriented 3 Vital signs stable, complaints of generalized body pains [id number] evaluation and physical examination done by me prior to discharge, did not show new changes. Patient is hemodynamically and clinically stable for discharge and does not need any further acute inpatient care at this time. Discharge diagnosis; Acute on chronic respiratory failure/improved Acute on chronic systolic congestive heart failure Severe cardiomyopathy with ejection fraction of 10% Cardiac arrhythmia status post ablation Chronic anticoagulation Status post ICD Morbid obesity; BMI of 43.7 Disposition: DC-01 TO HOME OR SELFCARE Time spent for discharge: 32 min Core Measure Documentation - Palliative Care Palliative Care/ Comfort Measures: Not Applicable - Core Measures Any of the following diagnoses?: heart failure - Heart Failure Discharge Requirements MELLISA/ARB for LVSD if EF <40%: Yes Reason for no MELLISA/ARB: Renal impairment Beta divya at discharge: Yes Exam - Constitutional Vitals: Temp Pulse Resp BP Pulse Ox 97.5 F L 93 H 16 103/71 96 10/26/17 15:16 10/26/17 15:16 10/26/17 15:16 10/26/17 15:16 10/26/17 15:16 General appearance: Present: no acute distress, well-nourished, obese - EENT Eyes: Present: PERRL, EOM intact - Neck Neck: Present: supple, normal ROM - Respiratory Respiratory effort: normal Respiratory: bilateral: diminished, negative: rales, rhonchi, wheezing - Cardiovascular Rhythm: regular Heart Sounds: Present: S1 & S2 - Extremities Extremities: no ischemia, No edema - Abdominal General gastrointestinal: Present: soft, non-tender, non-distended, normal bowel sounds - Integumentary Integumentary: Present: clear, warm - Musculoskeletal Musculoskeletal: strength equal bilaterally - Psychiatric Psychiatric: appropriate mood/affect, cooperative - Neurologic Neurologic: CNII-XII intact, moves all extremities Plan Activity: advance as tolerated Diet: low salt, other (Cardiac diet) Special Instructions: restrict fluid intake to (< 1200 ml/day) Additional Instructions: F/u private electrical technology instructor at [place] per schedule. Recommend to follow up with Dr. Culp at [place] within 3-5 days of hospital discharge. Advised to comply with medications, diet and follow-up visits Follow up with: PRIMARY CARE, [Referring] - 3-5 Days
== END 2017-10-26 16:00 | disposition home or self-care (01) | DRG 291 ==
LOC: ED 09:01 → 3A 14:38
PROVIDERS: ADMIT Internal Medicine; ATTEND Internal Medicine
PROC: 4A033R1 Measurement of Arterial Saturation, Peripheral, Percutaneous Approach (ICD-10-PCS; principal; 2017-10-26)
PROC: 3E0234Z Introduction of Serum, Toxoid and Vaccine into Muscle, Percutaneous Approach (ICD-10-PCS; 2017-10-26)
DX: I11.0 Hypertensive heart disease with heart failure (principal); J96.20 Acute and chronic respiratory failure, unspecified whether with hypoxia or hypercapnia; J45.901 Unspecified asthma with (acute) exacerbation; Z68.41 Body mass index [BMI] 40.0-44.9, adult; I50.23 Acute on chronic systolic (congestive) heart failure; I42.0 Dilated cardiomyopathy; Z88.8 Allergy status to other drugs, medicaments and biological substances; Z23 Encounter for immunization; Z86.73 Personal history of transient ischemic attack (TIA), and cerebral infarction without residual deficits; Z95.810 Presence of automatic (implantable) cardiac defibrillator; E78.5 Hyperlipidemia, unspecified; K21.9 Gastro-esophageal reflux disease without esophagitis; D64.9 Anemia, unspecified; F41.1 Generalized anxiety disorder; I48.91 Unspecified atrial fibrillation; E66.01 Morbid (severe) obesity due to excess calories; Z79.01 Long term (current) use of anticoagulants
CPT/HCPCS: 36415; 36600; 71045; 80048; 80053; 81001; 82550; 82553; 82803; 82962; 83036; 83880; 84132; 84484; 84703; 85007; 85025; 85610; 85730; 90732; 93005; 93010; 93306; 94640; 94760; 96374; 96375; A9270-GY; J1170; J1940; J1956; J2270; J2310; J2930

== ENCOUNTER 2018-10-24 23:58 | Emergency (ER) | payer MEDICARE ==
--- NOTE | 2018-10-25 00:40 | XRay Report ---
FINAL REPORT EXAM: XR CHEST ROUTINE 2V HISTORY: Shortness of breath COMPARISON: None available. FINDINGS:: Frontal and lateral views of the chest obtained. Mild to moderate cardiac enlargement. Le ft-sided cardiac defibrillator is in place. Shallow inspiration. Crowding of bronchovascular markings .. No focal consolidation or effusion. No pneumothorax. Visualized bony thorax is grossly intact. IMPRESSION:: Stable cardiac enlargement. Shallow inspiration. No gross focal consolidation. Mild chace tral congestion not excluded.
[2018-10-25 00:46] LABS: Hematocrit 43.5 % (30.3-42.9); Hemoglobin 14.1 gm/dl (10.1-14.3); Mean Corpuscular HGB Conc 32 % (30-34); Mean Corpuscular Volume 99 fl (79-97); Platelet Count 189 K/mm3 (140-440); Red Blood Count 4.41 M/mm3 (3.65-5.03); Red Cell Distribution Width 14.6 % (13.2-15.2)
[2018-10-25] MEDS ORDERED: ROBITUSSIN AC PO ONE (01:24)
[2018-10-25] MEDS ORDERED: SOLU-Medrol IV ONE (01:24)
[2018-10-25] MEDS ORDERED: MORPHINE IV ONE (01:24)
[2018-10-25 01:29] LABS: BUN/Creatinine Ratio 10; Blood Urea Nitrogen 10 mg/dL (7-17); Calcium 8.6 mg/dL (8.4-10.2); Hemolysis Index 33
[2018-10-25] MEDS ORDERED: K-DUR PO ONE (01:35)
--- NOTE | 2018-10-25 01:37 | Emergency Department Report ---
HPI - General Chief Complaint: Dyspnea/Respdistress Time Seen by Provider: 10/25/18 01:10 - HPI HPI: 33-year-old female presents to the emergency department with complaint of a 3 day history of a productive cough, chest congestion, shortness of breath and she had a low-grade fever earlier today of 100.9F. The patient saw her primary care physician, Dr. Nathan, who placed her on some Levaquin antibiotics but has not helped with her symptoms. She says that when she coughs it makes her entire upper body hurt. She has a past history of CHF, CVA, hypertension, atrial fibrillation. She has an AICD in place and has had 2 previous cardiac ablations. The patient is on Xarelto and has been compliant with her medications. No recent travel or sick contacts at home. She denies any lower extremity swelling. ED Past Medical Hx - Past Medical History Previous Medical History?: Yes Hx Hypertension: Yes Hx CVA: Yes Hx Congestive Heart Failure: Yes Hx Diabetes: No Hx Psychiatric Treatment: Yes (Anxiety, PTSD) Hx Asthma: No Hx COPD: No Additional medical history: afib - Surgical History Past Surgical History?: Yes Hx Internal Defibrillator: Yes Additional Surgical History: ICD. Cardiac ablation x 2 - Social History Smoking Status: Never Smoker Substance Use Type: None - Medications Home Medications: Home Medications Medication Instructions Recorded Confirmed Last Taken Type ALPRAZolam [Xanax] 2 mg PO BID PRN 10/24/17 10/24/17 Unknown History Amiodarone HCl [Pacerone 400 MG 400 mg PO QDAY 10/24/17 10/24/17 Unknown History TAB] Bisoprolol [Zebeta] 5 mg PO BID 10/24/17 10/24/17 Unknown History Famotidine [Pepcid] 40 mg PO QHS 10/24/17 10/24/17 Unknown History Ferrous Sulfate [Feosol] 325 mg PO QDAY 10/24/17 10/24/17 Unknown History LORazepam [Ativan] 1 mg PO Q12H PRN 10/24/17 10/24/17 Unknown History Pantoprazole [Protonix] 40 mg PO QDAY 10/24/17 10/24/17 Unknown History Potassium Chloride [K-Dur] 20 meq PO BID 10/24/17 10/24/17 Unknown History RX: Rivaroxaban [Xarelto] 15 mg PO QPM 10/24/17 10/24/17 Unknown History RX: Spironolactone [Aldactone] 25 mg PO BID 10/24/17 10/24/17 Unknown History Ramelteon [Rozerem] 8 mg PO HS 10/24/17 10/24/17 Unknown History Simvastatin [Zocor] 10 mg PO HS 10/24/17 10/24/17 Unknown History Torsemide [Demadex] 100 mg PO QDAY 10/24/17 10/24/17 Unknown History traMADol [Ultram] 50 mg PO Q8H PRN 10/24/17 10/24/17 Unknown History Prednisone [predniSONE 10 mg 10 mg PO .TAPER #1 tab.ds.pk 10/26/17 Unknown Rx (6-Day Pack, 21 Tabs)] guaiFENesin/DM 100/10MG 10 ml PO Q4HR 10 Days udc 10/26/17 Unknown Rx [Robitussin Dm] RX: predniSONE [Deltasone] 20 mg PO QDAY #5 tab 10/25/18 Unknown Rx ED Review of Systems ROS: Stated complaint: COUGH, CONGESTION BODY ACHES Other details as noted in HPI Comment: All other systems reviewed and negative Constitutional: chills, fever Eyes: denies: eye pain, vision change ENT: denies: ear pain, throat pain Respiratory: cough, shortness of breath Cardiovascular: denies: palpitations, edema Gastrointestinal: denies: abdominal pain, vomiting Genitourinary: denies: dysuria, discharge Musculoskeletal: denies: back pain, arthralgia Skin: denies: rash, lesions Neurological: denies: headache, weakness Physical Exam - Physical Exam Vital Signs: Vital Signs 10/25/18 10/25/18 00:07 01:14 Temperature 98.9 F 99.1 F Pulse Rate 86 95 H Respiratory 20 20 Rate Blood Pressure 118/76 Blood Pressure 102/69 [Left] O2 Sat by Pulse 97 96 Oximetry Physical Exam: GENERAL: The patient is well-developed well-nourished. HEENT: Normocephalic. Atraumatic. Patient has moist mucous membranes. Boggy nasal mucosa. Oropharynx is clear. EYES: Extraocular motions are intact. Pupils are equal and reactive to light bilaterally. NECK: Supple. Trachea is midline. CHEST/LUNGS: Clear to auscultation. There is a productive sounding cough heard during examination. There is no respiratory distress noted. HEART/CARDIOVASCULAR: Regular. There is no tachycardia. There is no obvious mu rmur. ABDOMEN: Abdomen is soft, nontender. Patient has normal bowel sounds. Obese habitus. SKIN: Skin is warm and dry. NEURO: The patient is awake, alert, and oriented. The patient is cooperative. The patient has no focal neurologic deficits. The patient has normal speech. MUSCULOSKELETAL: There is no tenderness or deformity. There is no evidence of acute injury. ED Course Vital Signs 10/25/18 10/25/18 00:07 01:14 Temperature 98.9 F 99.1 F Pulse Rate 86 95 H Respiratory 20 20 Rate Blood Pressure 118/76 Blood Pressure 102/69 [Left] O2 Sat by Pulse 97 96 Oximetry ED Medical Decision Making - Lab Data Result diagrams: 10/25/18 00:17 10/25/18 00:17 - EKG Data -: EKG Interpreted by Me - EKG Data Interpretation: unchanged when compared t (10/26/17), other (ventricular placed complexes, 84 bpm, right axis deviation) - Radiology Data Radiology results: image reviewed interpreted by me: Chest x-ray does not show any pneumothorax, pleural effusion, pneumonia or obvious focal consolidation. - Medical Decision Making Patient presents to the emergency department with a few days of some upper respiratory type symptoms. However today the patient also complains of some left upper chest pain as well. The chest wall soreness that occurs due to her cough is bilaterally and under the breast that appears separate from her chest pain. EKG is unchanged from previous and does not show any signs of ST elevation NV. Patient's labs show some mild hypokalemia and so far the patient has had a negative troponin 2. Chest x-ray did not show any focal consolidation, pneumonia, pneumothorax, pleural effusions, or any other acute process. The patient was given multiple doses of pain medication without any relief of her chest pain. She was given some Solu-Medrol and breathing treatments secondary to some mild bronchospasm. It does not appear that the patient has had a recent stress test. She has a history of nonischemic cardiomyopathy and continues to have some left-sided chest pain that is separate from the chest wall soreness. For these reasons, it is my intention to admit the patient to the hospital for further evaluation and cardiology consultation. The patient has stated that she feels that she had a bad experience the last time that she was here and cannot expand upon what occurred but says that she does not want to be admitted to this hospital and see the cardiology group that she saw one year ago. I explained to the patient that we can do a consult for the other cardiology group but that the patient needs further evaluation and therefore admission. At first the patient agreed to this plan, but later changed her mind and says that she is not willing to be admitted. I explained her that with her cardiac history and her left-sided chest pain that I cannot clearly rule out coronary artery disease as the source of her discomfort. I explained that leaving at this time without further evaluation and cardiology consultation may lead to continue chest pain, heart attack, disability, or even . The patient is awake, alert, oriented and has a normal decision-making capacity. She understands these risks and despite them still would like to leave AGAINST MEDICAL ADVICE. 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 - Differential Diagnosis URI, costochondritis, NV, CHF Critical Care Time: No Critical care attestation.: If time is entered above; I have spent that time in minutes in the direct care of this critically ill patient, excluding procedure time. ED Disposition Clinical Impression: Acute chest pain, Viral URI, Bronchospasm, Hypokalemia Disposition: - LEFT AGAINST MED ADVICE Is pt being admited?: No Condition: Stable Instructions: Chest Pain (ED), Upper Respiratory Infection (ED), Bronchospasm (ED) Additional Instructions: Please return to the emergency department immediately if you change your mind ab out admission or with any worsening of your symptoms or any acute distress. Prescriptions: RX: predniSONE [Deltasone] 20 mg PO QDAY #5 tab Forms: AMA Form Time of Disposition: 04:45
[2018-10-25 02:33] LABS: Anisocytosis 1+; Band Neutrophils # (Manual) 0.1 K/mm3; Basophils % (Manual) 0 % (0.0-1.8); Eosinophils % (Manual) 0 % (0.0-4.3); Helmet Cells Rare; Ovalocytes 1+; Target Cells Few; Tear Drop Cells Rare; Total Cells Counted 100
[2018-10-25] MEDS ORDERED: SUBLIMAZE IV ONE (04:28)
[2018-10-25] MEDS ORDERED: SUBLIMAZE ONE (04:31)
[2018-10-25 04:32] VITALS: BP 105/51
== END 2018-10-25 05:58 | disposition left against medical advice (07) ==
LOC: ED 23:58
DX: J06.9 Acute upper respiratory infection, unspecified (principal); J98.01 Acute bronchospasm; E87.6 Hypokalemia; I11.0 Hypertensive heart disease with heart failure; I50.9 Heart failure, unspecified; F41.9 Anxiety disorder, unspecified; F43.10 Post-traumatic stress disorder, unspecified; Z95.810 Presence of automatic (implantable) cardiac defibrillator; Z86.73 Personal history of transient ischemic attack (TIA), and cerebral infarction without residual deficits; Z88.1 Allergy status to other antibiotic agents
CPT/HCPCS: 36415; 71046; 80048; 83880; 84484; 85007; 85025; 93005; 93010; 96374; 96375; 99284; J2270; J2930; J3010

== ENCOUNTER 2018-11-02 17:56 | Emergency (ER) | payer MEDICARE ==
[2018-11-02 18:50] LABS: Basophils # (Auto) 0.1 K/mm3 (0.0-0.1); Basophils % (Auto) 1.2 % (0.0-1.8); Eosinophils # (Auto) 0.1 K/mm3 (0.0-0.4); Eosinophils % (Auto) 0.8 % (0.0-4.3); Hematocrit 49.5 % (30.3-42.9); Lymphocytes % (Auto) 35.5 % (13.4-35.0); Mean Corpuscular HGB Conc 32 % (30-34); Mean Corpuscular Volume 97 fl (79-97); Monocytes # (Auto) 0.7 K/mm3 (0.0-0.8); Monocytes % (Auto) 8.2 % (0.0-7.3); Platelet Count 330 K/mm3 (140-440); Red Blood Count 5.12 M/mm3 (3.65-5.03); Red Cell Distribution Width 14.3 % (13.2-15.2)
[2018-11-02 19:05] LABS: BUN/Creatinine Ratio 8; Blood Urea Nitrogen 7 mg/dL (7-17); Calcium 8.9 mg/dL (8.4-10.2); Hemolysis Index 17
--- NOTE | 2018-11-02 21:37 | Emergency Department Report ---
ED General Adult HPI - General Chief complaint: Abdominal Pain Stated complaint: STOMACH PAIN/WEAK/VOMITING Time Seen by Provider: 11/02/18 21:34 Source: patient Mode of arrival: Ambulatory Limitations: No Limitations - History of Present Illness Initial comments: 33-year-old female with a history of CHF, hypertension, atrial fibrillation presents with the complaint of abdominal pain and vomiting. Patient states she has not had an appetite for the past 2 days and has minimal by mouth intake. Patient states she is still nauseous but has had no vomiting episodes. Patient denies any dysuria or hematuria. Patient denies any hematochezia. Patient d enies any chest pain or shortness of the current time. Patient has had no fever. Patient's last bowel movement was this morning patient denies any hematochezia. Severity scale (0 -10): 10 - Related Data Home Medications Medication Instructions Recorded Confirmed Last Taken ALPRAZolam [Xanax] 2 mg PO BID PRN 10/24/17 10/24/17 Unknown Amiodarone HCl [Pacerone 400 MG 400 mg PO QDAY 10/24/17 10/24/17 Unknown TAB] Bisoprolol [Zebeta] 5 mg PO BID 10/24/17 10/24/17 Unknown Famotidine [Pepcid] 40 mg PO QHS 10/24/17 10/24/17 Unknown Ferrous Sulfate [Feosol] 325 mg PO QDAY 10/24/17 10/24/17 Unknown LORazepam [Ativan] 1 mg PO Q12H PRN 10/24/17 10/24/17 Unknown Pantoprazole [Protonix] 40 mg PO QDAY 10/24/17 10/24/17 Unknown Potassium Chloride [K-Dur] 20 meq PO BID 10/24/17 10/24/17 Unknown Ramelteon [Rozerem] 8 mg PO HS 10/24/17 10/24/17 Unknown Rivaroxaban [Xarelto] 15 mg PO QPM 10/24/17 10/24/17 Unknown Simvastatin [Zocor] 10 mg PO HS 10/24/17 10/24/17 Unknown Spironolactone [Aldactone] 25 mg PO BID 10/24/17 10/24/17 Unknown Torsemide [Demadex] 100 mg PO QDAY 10/24/17 10/24/17 Unknown traMADol [Ultram] 50 mg PO Q8H PRN 10/24/17 10/24/17 Unknown Previous Rx's Medication Instructions Recorded Last Taken Type Prednisone [predniSONE 10 mg 10 mg PO .TAPER #1 tab.ds.pk 10/26/17 Unknown Rx (6-Day Pack, 21 Tabs)] guaiFENesin/DM 100/10MG 10 ml PO Q4HR 10 Days udc 10/26/17 Unknown Rx [Robitussin Dm] predniSONE [Deltasone] 20 mg PO QDAY #5 tab 10/25/18 Unknown Rx Famotidine [Pepcid] 20 mg PO BID #60 tablet 11/02/18 Unknown Rx HYDROcodone/ACETAMINOPHEN [[place] 1 each PO Q8HR PRN #20 tablet 11/02/18 Unknown Rx 5-325 Tablet] Ondansetron [Zofran Odt] 4 mg PO Q8HR #20 tab.rapdis 11/02/18 Unknown Rx Allergies Allergy/AdvReac Type Severity Reaction Status Date / Time vancomycin Allergy Rash Verified 11/02/18 17:58 ED Review of Systems ROS: Stated complaint: STOMACH PAIN/WEAK/VOMITING Other details as noted in HPI Constitutional: denies: chills, fever Eyes: denies: eye pain, eye discharge, vision change ENT: denies: ear pain, throat pain Respiratory: denies: cough, shortness of breath, wheezing Cardiovascular: denies: chest pain, palpitations Endocrine: no symptoms reported Gastrointestinal: abdominal pain, vomiting. denies: nausea, diarrhea Genitourinary: denies: urgency, dysuria, discharge Musculoskeletal: denies: back pain, joint swelling, arthralgia Skin: denies: rash, lesions Neurological: weakness. denies: headache, paresthesias Psychiatric: denies: anxiety, depression Hematological/Lymphatic: denies: easy bleeding, easy bruising ED Past Medical Hx - Past Medical History Previous Medical History?: Yes Hx Hypertension: Yes Hx CVA: Yes Hx Congestive Heart Failure: Yes Hx Diabetes: No Hx Psychiatric Treatment: Yes (Anxiety, PTSD) Hx Asthma: No Hx COPD: No Additional medical history: afib - Surgical History Past Surgical History?: Yes Hx Internal Defibrillator: Yes Additional Surgical History: ICD. Cardiac ablation x 2 - Social History Smoking Status: Never Smoker Substance Use Type: None - Medications Home Medications: Home Medications Medication Instructions Recorded Confirmed Last Taken Type ALPRAZolam [Xanax] 2 mg PO BID PRN 10/24/17 10/24/17 Unknown History Amiodarone HCl [Pacerone 400 MG 400 mg PO QDAY 10/24/17 10/24/17 Unknown History TAB] Bisoprolol [Zebeta] 5 mg PO BID 10/24/17 10/24/17 Unknown History Famotidine [Pepcid] 40 mg PO QHS 10/24/17 10/24/17 Unknown History Ferrous Sulfate [Feosol] 325 mg PO QDAY 10/24/17 10/24/17 Unknown History LORazepam [Ativan] 1 mg PO Q12H PRN 10/24/17 10/24/17 Unknown History Pantoprazole [Protonix] 40 mg PO QDAY 10/24/17 10/24/17 Unknown History Potassium Chloride [K-Dur] 20 meq PO BID 10/24/17 10/24/17 Unknown History Ramelteon [Rozerem] 8 mg PO HS 10/24/17 10/24/17 Unknown History Rivaroxaban [Xarelto] 15 mg PO QPM 10/24/17 10/24/17 Unknown History Simvastatin [Zocor] 10 mg PO HS 10/24/17 10/24/17 Unknown History Spironolactone [Aldactone] 25 mg PO BID 10/24/17 10/24/17 Unknown History Torsemide [Demadex] 100 mg PO QDAY 10/24/17 10/24/17 Unknown History traMADol [Ultram] 50 mg PO Q8H PRN 10/24/17 10/24/17 Unknown History Prednisone [predniSONE 10 mg 10 mg PO .TAPER #1 tab.ds.pk 10/26/17 Unknown Rx (6-Day Pack, 21 Tabs)] guaiFENesin/DM 100/10MG 10 ml PO Q4HR 10 Days udc 10/26/17 Unknown Rx [Robitussin Dm] predniSONE [Deltasone] 20 mg PO QDAY #5 tab 10/25/18 Unknown Rx Famotidine [Pepcid] 20 mg PO BID #60 tablet 11/02/18 Unknown Rx HYDROcodone/ACETAMINOPHEN [[place] 1 each PO Q8HR PRN #20 tablet 11/02/18 Unknown Rx 5-325 Tablet] Ondansetron [Zofran Odt] 4 mg PO Q8HR #20 tab.rapdis 11/02/18 Unknown Rx ED Physical Exam - General Limitations: No Limitations General appearance: alert, other (uncomfortable; dehydrated) - Head Head exam: Present: atraumatic, normocephalic - Eye Eye exam: Present: normal appearance - ENT ENT exam: Present: mucous membranes dry - Neck Neck exam: Present: normal inspection - Respiratory Respiratory exam: Present: normal lung sounds bilaterally. Absent: respiratory distress - Cardiovascular Cardiovascular Exam: Present: regular rate, normal rhythm. Absent: systolic murmur, diastolic murmur, rubs, gallop - GI/Abdominal GI/Abdominal exam: Present: soft, tenderness (mild diffuse tenderness), normal bowel sounds. Absent: guarding, rebound - Extremities Exam Extremities exam: Present: normal inspection - Back Exam Back exam: Present: normal inspection - Neurological Exam Neurological exam: Present: alert, oriented X3 - Psychiatric Psychiatric exam: Present: normal affect, normal mood - Skin Skin exam: Present: warm, dry, intact, normal color. Absent: rash ED Course Vital Signs 11/02/18 11/02/18 18:00 22:25 Temperature 97.8 F Pulse Rate 71 Respiratory 18 18 Rate Blood Pressure 132/85 O2 Sat by Pulse 99 Oximetry ED Medical Decision Making - Lab Data Result diagrams: 11/02/18 18:26 11/02/18 18:26 - Medical Decision Making Patient improved status post receiving GI cocktail. Patient to be discharged to follow up with PCP. Patient will receive [place] therapy and Zofran therapy upon discharge. Patient also to receive Pepcid therapy. - Differential Diagnosis Dehydration; UTI; Anemia; Electrolyte Abnormality; Critical care attestation.: If time is entered above; I have spent that time in minutes in the direct care of this critically ill patient, excluding procedure time. ED Disposition Clinical Impression: GERD (gastroesophageal reflux disease), Abdominal pain, Vomiting Disposition: DC- TO HOME OR SELFCARE Is pt being admited?: No Does the pt Need Aspirin: No Condition: Stable Instructions: Abdominal Pain (ED) Prescriptions: Famotidine [Pepcid] 20 mg PO BID #60 tablet HYDROcodone/ACETAMINOPHEN [[place] 5-325 Tablet] 1 each PO Q8HR PRN #20 tablet PRN Reason: Pain, Moderate (4-6) Ondansetron [Zofran Odt] 4 mg PO Q8HR #20 tab.rapdis Referrals: NICKY EVANS JR, MD [Primary Care Provider] - 3-5 Days Time of Disposition: 23:51 Print Language: SYRIAN
[2018-11-02] MEDS ORDERED: MORPHINE IV ONE ×2 (21:57→23:47)
[2018-11-02] MEDS ORDERED: NACL 0.9% 1000 ML 1,000 ML IV ONE (21:57)
[2018-11-02] MEDS ORDERED: ZOFRAN IV ONE ×2 (21:57→23:47)
[2018-11-02] MEDS ORDERED: MIRACLE MIXTURE PO ONE (22:00)
[2018-11-02 22:28] LABS: Bilirubin,Urine NEG (Negative); Blood,Urine SM (Negative); Color,Urine Yellow (Yellow); Protein,Urine <15 mg/dL mg/dL (Negative); Urobilinogen,Urine < 2.0 mg/dL (<2.0)
--- NOTE | 2018-11-02 23:28 | Cat Scan Report ---
FINAL REPORT EXAM: CT ABDOMEN PELVIS WO CON HISTORY: Abdominal pain. TECHNIQUE: CT evaluation performed of the abdomen and pelvis without IV or oral contrast administrat ion. Coronal and sagittal imaging also provided for interpretation. PRIORS: None. FINDINGS: Lower thorax: The lung bases are clear. Cardiac pacer/defibrillator leads are present and the heart i s mildly enlarged. Liver: No focal lesions identified of the liver. No intrahepatic biliary ductal dilation. Gallbladder/ biliary system: No cholelithiasis. No extrahepatic biliary ductal dilation. Spleen: No splenic lesions are seen. Pancreas: No pancreatic lesions are seen. No pancreatic duct dilation. Kidneys: No kidney lesions identified. No hydronephrosis. No ureteral or renal calcifications. Adrenal glands: No adrenal masses. Vasculature: The abdominal and pelvic vasculature demonstrates a normal noncontrasted appearance. Lymph nodes: No enlarged lymph nodes are seen in the abdomen or pelvis. Bowel, mesentery, peritoneum: No bowel obstruction. No colonic diverticulosis. The appendix is normal . No free intra-abdominal fluid or air. Urinary bladder: No calculi or wall thickening. Pelvis: Normal anatomy is noted. Abdominal wall: No abdominal wall hernia or subcutaneous findings. Bones: No acute osseous abnormality.Mild bilateral hip degenerative changes. IMPRESSION: No noncontrast CT evidence of acute abdominopelvic process. Cardiomegaly and pacer leads in the heart.
[2018-11-02] MEDS ORDERED: PERCOCET 5/325 PO STA (23:43)
[2018-11-03 00:59] VITALS: BP 122/70
== END 2018-11-03 00:10 | disposition home or self-care (01) ==
LOC: ED 17:56
DX: K21.9 Gastro-esophageal reflux disease without esophagitis (principal); I11.0 Hypertensive heart disease with heart failure; I50.9 Heart failure, unspecified; F43.10 Post-traumatic stress disorder, unspecified; F41.9 Anxiety disorder, unspecified; I48.91 Unspecified atrial fibrillation; Z86.73 Personal history of transient ischemic attack (TIA), and cerebral infarction without residual deficits; Z95.818 Presence of other cardiac implants and grafts
CPT/HCPCS: 36415; 74176; 80048; 81001; 83690; 84484; 84703; 85025; 96374; 96375; 96376; 99284; J2270; J2405; J7030

== ENCOUNTER 2019-08-18 19:21 | Emergency (ER) | payer MEDICARE ==
--- NOTE | 2019-08-18 19:34 | Event Note ---
ED Screening Note ED Screening Note: hx of migraines since childhood states she has a headache for two days states her doctor gave her fioricet took with some relief took tylenol as well PMHx of CVA, CHF, afib, pacemaker pt is on xarelto This initial assessment/diagnostic orders/clinical plan/treatment(s) is/are subject to change based on patients health status, clinical progression and re- assessment by fellow clinical providers in the ED. Further treatment and workup at subsequent clinical providers discretion. Patient/guardian urged not to elope from the ED as their condition may be serious if not clinically assessed and managed.
[2019-08-18 19:40] VITALS: BP 113/79
[2019-08-18] MEDS ORDERED: dexAMETHasone 20 MG/5 ML VIAL IV ONE (21:12)
[2019-08-18] MEDS ORDERED: ACETAMINOPHEN 500 MG TAB PO ONE (21:12)
[2019-08-18] MEDS ORDERED: METOCLOPRAMIDE 10 MG TAB PO ONE (21:13)
--- NOTE | 2019-08-18 22:11 | Emergency Department Report ---
ED Headache HPI - General Chief Complaint: Headache Stated Complaint: MIGRAINE Time Seen by Provider: 08/18/19 19:32 - History of Present Illness Initial Comments: IM as well as another 4-year-old female with a history of migraine headaches, who is sore from a headache radiating to right eye 5/10 and aching sharp. This headache is in the usual location, and intensity. There is mild photophobia and no nausea /vomiting. Patient is tolerating by mouth intake and is ambulatory to baseline A / O 3. These symptoms are exacerbated by activities the symptoms are relieved by rest and NSAIDs. [facility] . Timing/Duration: 24 hours Quality: moderate Head Injury Location: frontal Recent Head Trauma: frequent headaches Allergies/Adverse Reactions: Allergies vancomycin Allergy (Verified 11/02/18 17:58) Rash Home Medications: Ambulatory Orders ALPRAZolam [Xanax] 2 mg PO BID PRN 10/24/17 Amiodarone HCl [Pacerone 400 MG TAB] 400 mg PO QDAY 10/24/17 Bisoprolol [Zebeta] 5 mg PO BID 10/24/17 Famotidine [Pepcid] 40 mg PO QHS 10/24/17 Ferrous Sulfate [Feosol] 325 mg PO QDAY 10/24/17 LORazepam [Ativan] 1 mg PO Q12H PRN 10/24/17 Pantoprazole [Protonix] 40 mg PO QDAY 10/24/17 Potassium Chloride [K-Dur] 20 meq PO BID 10/24/17 Ramelteon [Rozerem] 8 mg PO HS 10/24/17 Rivaroxaban [Xarelto] 15 mg PO QPM 10/24/17 Simvastatin [Zocor] 10 mg PO HS 10/24/17 Spironolactone [Aldactone] 25 mg PO BID 10/24/17 Torsemide [Demadex] 100 mg PO QDAY 10/24/17 traMADoL [Ultram] 50 mg PO Q8H PRN 10/24/17 Prednisone [predniSONE 10 mg (6-Day Pack, 21 Tabs)] 10 mg PO .TAPER #1 tab.ds.pk 10/26/17 guaiFENesin/DM 100/10MG [Robitussin Dm] 10 ml PO Q4HR 10 Days udc 10/26/17 predniSONE [Deltasone] 20 mg PO QDAY #5 tab 10/25/18 Famotidine [Pepcid] 20 mg PO BID #60 tablet 11/02/18 HYDROcodone/ACETAMINOPHEN [Unity 5-325 Tablet] 1 each PO Q8HR PRN #20 tablet 11/02/18 Ondansetron [Zofran Odt] 4 mg PO Q8HR #20 tab.rapdis 11/02/18 Acetaminophen [Acetaminophen TAB] 1,000 mg PO Q6HR PRN #30 tablet 08/18/19 Metoclopramide [Reglan] 10 mg PO ACHS 1 Days #30 tablet 08/18/19 diphenhydrAMINE [Benadryl CAP] 25 mg PO QHS PRN 7 Days #30 capsule 08/18/19 ED Review of Systems ROS: Stated complaint: MIGRAINE Other details as noted in HPI Constitutional: denies: chills, fever Eyes: denies: eye pain, eye discharge, vision change ENT: throat pain, congestion. denies: ear pain, dental pain, hearing loss Respiratory: denies: cough, shortness of breath, wheezing Cardiovascular: chest pain. denies: edema, paroxysmal nocturnal dyspnea Endocrine: no symptoms reported Gastrointestinal: denies: abdominal pain, nausea, diarrhea Genitourinary: denies: urgency, dysuria, discharge Musculoskeletal: denies: back pain, joint swelling, arthralgia Skin: denies: rash, lesions Neurological: headache. denies: weakness, numbness, paresthesias, confusion, abnormal gait, vertigo Psychiatric: denies: anxiety, depression Hematological/Lymphatic: denies: easy bleeding, easy bruising ED Past Medical Hx - Past Medical History Previous Medical History?: Yes Hx Hypertension: Yes Hx CVA: Yes Hx Congestive Heart Failure: Yes Hx Diabetes: No Hx Headaches / Migraines: Yes Hx Psychiatric Treatment: Yes (Anxiety, PTSD) Hx Asthma: No Hx COPD: No Additional medical history: afib - Surgical History Past Surgical History?: Yes Hx Internal Defibrillator: Yes Additional Surgical History: ICD. Cardiac ablation x 2 - Social History Smoking Status: Never Smoker Substance Use Type: None - Medications Home Medications: Home Medications Medication Instructions Recorded Confirmed Last Taken Type ALPRAZolam [Xanax] 2 mg PO BID PRN 10/24/17 10/24/17 Unknown History Amiodarone HCl [Pacerone 400 MG 400 mg PO QDAY 10/24/17 10/24/17 Unknown History TAB] Bisoprolol [Zebeta] 5 mg PO BID 10/24/17 10/24/17 Unknown History Famotidine [Pepcid] 40 mg PO QHS 10/24/17 10/24/17 Unknown History Ferrous Sulfate [Feosol] 325 mg PO QDAY 10/24/17 10/24/17 Unknown History LORazepam [Ativan] 1 mg PO Q12H PRN 10/24/17 10/24/17 Unknown History Pantoprazole [Protonix] 40 mg PO QDAY 10/24/17 10/24/17 Unknown History Potassium Chloride [K-Dur] 20 meq PO BID 10/24/17 10/24/17 Unknown History Ramelteon [Rozerem] 8 mg PO HS 10/24/17 10/24/17 Unknown History Rivaroxaban [Xarelto] 15 mg PO QPM 10/24/17 10/24/17 Unknown History Simvastatin [Zocor] 10 mg PO HS 10/24/17 10/24/17 Unknown History Spironolactone [Aldactone] 25 mg PO BID 10/24/17 10/24/17 Unknown History Torsemide [Demadex] 100 mg PO QDAY 10/24/17 10/24/17 Unknown History traMADoL [Ultram] 50 mg PO Q8H PRN 10/24/17 10/24/17 Unknown History Prednisone [predniSONE 10 mg 10 mg PO .TAPER #1 tab.ds.pk 10/26/17 Unknown Rx (6-Day Pack, 21 Tabs)] guaiFENesin/DM 100/10MG 10 ml PO Q4HR 10 Days udc 10/26/17 Unknown Rx [Robitussin Dm] predniSONE [Deltasone] 20 mg PO QDAY #5 tab 10/25/18 Unknown Rx Famotidine [Pepcid] 20 mg PO BID #60 tablet 11/02/18 Unknown Rx HYDROcodone/ACETAMINOPHEN [Unity 1 each PO Q8HR PRN #20 tablet 11/02/18 Unknown Rx 5-325 Tablet] Ondansetron [Zofran Odt] 4 mg PO Q8HR #20 tab.rapdis 11/02/18 Unknown Rx Acetaminophen [Acetaminophen TAB] 1,000 mg PO Q6HR PRN #30 tablet 08/18/19 Unknown Rx Metoclopramide [Reglan] 10 mg PO ACHS 1 Days #30 tablet 08/18/19 Unknown Rx diphenhydrAMINE [Benadryl CAP] 25 mg PO QHS PRN 7 Days #30 capsule 08/18/19 Unknown Rx ED Physical Exam - General Limitations: No Limitations General appearance: alert, in no apparent distress - Head Head exam: Present: atraumatic, normocephalic - Eye Eye exam: Present: normal appearance, PERRL, EOMI Pupils: Present: normal accommodation - ENT ENT exam: Present: mucous membranes dry, mucous membranes moist, TM's normal bilaterally, normal external ear exam - Neck Neck exam: Present: normal inspection - Respiratory Respiratory exam: Present: normal lung sounds bilaterally. Absent: respiratory distress, wheezes, stridor, chest wall tenderness - Cardiovascular Cardiovascular Exam: Present: normal rhythm, bradycardia, tachycardia - GI/Abdominal GI/Abdominal exam: Present: soft, normal bowel sounds - Rectal Rectal exam: Present: deferred - Extremities Exam Extremities exam: Present: normal inspection, full ROM, normal capillary refill. Absent: tenderness, pedal edema, joint swelling - Back Exam Back exam: Present: normal inspection, full ROM. Absent: CVA tenderness (R), CVA tenderness (L) - Neurological Exam Neurological exam: Present: alert, oriented X3 - Psychiatric Psychiatric exam: Present: normal affect, normal mood - Skin Skin exam: Present: warm, dry, intact, normal color. Absent: rash ED Course Vital Signs 08/18/19 19:34 Temperature 98.3 F Pulse Rate 66 Respiratory 18 Rate Blood Pressure 113/79 O2 Sat by Pulse 99 Oximetry ED Medical Decision Making - Medical Decision Making headache cmheadache is improved plan: tyelnol, reglan, benadryl, continue fioricet. as prescribed , pt will follow up pcp in 2 days. Critical care attestation.: If time is entered above; I have spent that time in minutes in the direct care of this critically ill patient, excluding procedure time. ED Disposition Clinical Impression: Headache Qualifiers: Headache type: unspecified Headache chronicity pattern: acute headache Intractability: not intractable Qualified Code(s): R51 - Headache Disposition: DC- TO HOME OR SELFCARE Is pt being admited?: No Does the pt Need Aspirin: No Condition: Critical Instructions: Allergic Rhinitis (ED) Prescriptions: diphenhydrAMINE [Benadryl CAP] 25 mg PO QHS PRN 7 Days #30 capsule PRN Reason: pain Acetaminophen [Acetaminophen TAB] 1,000 mg PO Q6HR PRN #30 tablet PRN Reason: Headache Metoclopramide [Reglan] 10 mg PO ACHS 1 Days #30 tablet Referrals: PATRICIA HICKMAN MD [Referring] - 3-5 Days Forms: Work/School Release Form(ED) Time of Disposition: 20:00
== END 2019-08-18 22:50 | disposition home or self-care (01) ==
LOC: ED 19:21
DX: I11.0 Hypertensive heart disease with heart failure (principal); I50.9 Heart failure, unspecified; F41.9 Anxiety disorder, unspecified; F43.10 Post-traumatic stress disorder, unspecified; G43.909 Migraine, unspecified, not intractable, without status migrainosus; I25.2 Old myocardial infarction; Z98.890 Other specified postprocedural states; Z79.899 Other long term (current) drug therapy; Z88.1 Allergy status to other antibiotic agents
CPT/HCPCS: 96374; 99282; J1100